=== PATIENT | male | born 1960 | race Caucasian/White ===

== ENCOUNTER 2022-01-26 13:58 | Inpatient (IN) | payer OTHER ==
[~2022-01-26] VITALS: Ht 170.2 cm; Wt 105.0 kg
[2022-01-26 15:40] LABS: BASOPHILS # (AUTO) 0.1 X10'3 (0-0.2); BASOPHILS % (AUTO) 0.8 % (0-1); EOSINOPHILS # (AUTO) 0.2 X10'3 (0-0.9); EOSINOPHILS % (AUTO) 2.3 % (0-6); HEMOGLOBIN 10.6 g/dl (14.0-17.9); LYMPHOCYTES # (AUTO) 1.4 X10'3 (1.1-4.8); LYMPHOCYTES % (AUTO) 20.2 % (21-51); MEAN CORPUSCULAR HEMOGLOBIN 22.8 PG (27.0-31.0); MEAN CORPUSCULAR VOLUME 73.4 FL (78-98); MEAN PLATELET VOLUME 6.8 FL (7.4-10.4); MONOCYTES # (AUTO) 0.5 X10'3 (0-0.9); MONOCYTES % (AUTO) 7.1 % (2-12); NEUTROPHILS # (AUTO) 4.8 X10'3 (1.8-7.7); NEUTROPHILS % (AUTO) 69.6 % (42-75); PLATELET COUNT 280 X10'3 (140-440); RED BLOOD COUNT 4.64 X10'6 (4.70-6.10); RED CELL DISTRIBUTION WIDTH 18.6 % (11.5-14.5)
[2022-01-26 15:56] LABS: ALANINE AMINOTRANSFERASE 16 U/L (12-78); ALBUMIN 3.5 G/DL (3.4-5.0); ALBUMIN/GLOBULIN RATIO 0.9 (1.1-1.5); ALKALINE PHOSPHATASE 125 IU/L (46-116); ANION GAP 5 (8-16); ASPARTATE AMINO TRANSFERASE 17 U/L (10-37); BILIRUBIN,TOTAL 0.7 MG/DL (0.1-1.0); BLOOD UREA NITROGEN 20 MG/DL (7-18); BUN/CREATININE RATIO 16.8 (5.4-32.0); CHLORIDE 106 MMOL/L (99-107); CREATININE 1.19 MG/DL (0.60-1.10); GLUCOSE 99 MG/DL (70-104); POTASSIUM 4.7 MMOL/L (3.5-5.1); SODIUM 140 MMOL/L (135-145); TOTAL CARBON DIOXIDE 29.1 MMOL/L (24-32); TOTAL PROTEIN 7.4 G/DL (6.4-8.2); eGFR 62 ML/MIN
[2022-01-26 16:13] LABS: ANISOCYTOSIS 2+; MICROCYTOSIS 1+; PLATELET ESTIMATE NORMAL
[2022-01-26 16:14] LABS: HYPOCHROMASIA 1+
[2022-01-26 16:15] LABS: ELLIPTOCYTES FEW
[2022-01-26] MEDS ORDERED: aspirin 81mg tab.chew PO ONE (17:00)
[2022-01-26] MEDS ORDERED: heparin 10,000 units/1 ML INJ IV PRN (17:10)
[2022-01-26] MEDS ORDERED: HEPARIN SOD,PORK IN 0.45% NACL 250 ML IV SCH (17:10)
[2022-01-26] MEDS ORDERED: heparin 10,000 units/1 ML INJ IV ONE ×2 (17:10→17:25)
[2022-01-26] MEDS ORDERED: morphine 2 MG/ML inj. syringe IV PRN ×2 (17:25)
[2022-01-26] MEDS ORDERED: heparin 25,000 UNIT/250ml bag 250 ML IV SCH (17:25)
[2022-01-26] MEDS ORDERED: magnesium 2GM in 50ml NS 50 ML IV PRN (17:25)
[2022-01-26] MEDS ORDERED: HYDROcodone/acetaminophen 10/325mg tab PO PRN (17:25)
[2022-01-26] MEDS ORDERED: POTASSIUM BICARB 20meq eff tab 20 MEQ TABLET.EFF PO PRN ×2 (17:25)
[2022-01-26] MEDS ORDERED: magnesium Cl slow-release 64mg tablet PO PRN (17:25)
[2022-01-26] MEDS ORDERED: acetaminophen 325mg tablet PO PRN ×2 (17:25)
[2022-01-26] MEDS ORDERED: HYDROcodone/acetaminophen 5mg/325mg tablet PO PRN (17:25)
[2022-01-26] MEDS ORDERED: potassium CL 10mEq/100ml bag 100 ML IV PRN (17:25)
[2022-01-26] MEDS ORDERED: magnesium 4gm in 100ml NS 100 ML IV PRN (17:25)
[2022-01-26 17:46] LABS: ETHANOL < 0.010 GM/DL (0.0-0.010)
[2022-01-26 18:11] LABS: APTT 29 SECONDS (22-32)
[2022-01-26 18:59] LABS: CHOL/HDL RATIO 3.1 (0.00-4.99); CHOLESTEROL 110 MG/DL (0-200); HDL CHOLESTEROL 36 MG/DL (35-60); LDL CHOLESTEROL 68 MG/DL (50-100); TRIGLYCERIDES 41 MG/DL (20-135)
[2022-01-26 19:28] LABS: URINE AMPHETAMINE SCREEN NEGATIVE (Neg); URINE BARBITUATE SCREEN NEGATIVE (Neg); URINE BENZODIAZEPINES SCREEN NEGATIVE (Neg); URINE CANNABINOID SCREEN NEGATIVE (Neg); URINE COCAINE SCREEN NEGATIVE (Neg); URINE METHADONE SCREEN NEGATIVE (Neg); URINE OPIATE SCREEN POSITIVE (Neg); URINE PHENCYCLIDINE SCREEN NEGATIVE (Neg)
[2022-01-26] MEDS ORDERED: NO HOME MEDS (19:38)
[2022-01-26] MEDS: K and/or MAG REPLACEMENT MC SCH (20:00)
[2022-01-26] MEDS: carVEDilol 3.125mg tablet PO SCH (20:37)
[2022-01-26] MEDS: furosemide 20 MG/2 ML vial IV SCH (20:38)
[2022-01-26] MEDS: normal saline 1000ml 1,000 ML IV SCH (20:38)
--- NOTE | 2022-01-26 20:44 | NUR ---
MD AWARE OF ELEVATED TROPONINS
[2022-01-27 04:32] VITALS: BP 141/80
[2022-01-27 06:00] VITALS: BP 130/71
[2022-01-27 06:28] LABS: BASOPHILS % (AUTO) 0.6 % (0-1); EOSINOPHILS # (AUTO) 0.2 X10'3 (0-0.9); EOSINOPHILS % (AUTO) 3.7 % (0-6); HEMOGLOBIN 10.8 g/dl (14.0-17.9); LYMPHOCYTES # (AUTO) 1.4 X10'3 (1.1-4.8); LYMPHOCYTES % (AUTO) 21.8 % (21-51); MEAN CORPUSCULAR HEMOGLOBIN 23.2 PG (27.0-31.0); MEAN CORPUSCULAR HGB CONC 31.9 g/dL (33.0-36.5); MEAN CORPUSCULAR VOLUME 72.9 FL (78-98); MEAN PLATELET VOLUME 6.7 FL (7.4-10.4); MONOCYTES # (AUTO) 0.5 X10'3 (0-0.9); MONOCYTES % (AUTO) 7.6 % (2-12); NEUTROPHILS # (AUTO) 4.3 X10'3 (1.8-7.7); NEUTROPHILS % (AUTO) 66.3 % (42-75); PLATELET COUNT 286 X10'3 (140-440); RED BLOOD COUNT 4.66 X10'6 (4.70-6.10); RED CELL DISTRIBUTION WIDTH 18.5 % (11.5-14.5); WHITE BLOOD COUNT 6.5 X10'3 (4.5-11.0)
[2022-01-27 06:47] LABS: ALANINE AMINOTRANSFERASE 14 U/L (12-78); ALBUMIN 3.3 G/DL (3.4-5.0); ALBUMIN/GLOBULIN RATIO 0.8 (1.1-1.5); ALKALINE PHOSPHATASE 124 IU/L (46-116); ANION GAP 7 (8-16); ASPARTATE AMINO TRANSFERASE 15 U/L (10-37); BLOOD UREA NITROGEN 18 MG/DL (7-18); BUN/CREATININE RATIO 15.9 (5.4-32.0); CALCIUM 8.7 MG/DL (8.5-10.1); CHLORIDE 104 MMOL/L (99-107); CREATININE 1.13 MG/DL (0.60-1.10); GLUCOSE 83 MG/DL (70-104); POTASSIUM 3.9 MMOL/L (3.5-5.1); SODIUM 140 MMOL/L (135-145); TOTAL CARBON DIOXIDE 28.8 MMOL/L (24-32); TOTAL PROTEIN 7.2 G/DL (6.4-8.2); eGFR 66 ML/MIN
[2022-01-27] MEDS: furosemide 20 MG/2 ML vial IV SCH ×2 (07:34→19:39)
[2022-01-27] MEDS: atorvastatin 20mg tablet PO SCH (07:34)
[2022-01-27] MEDS: carVEDilol 3.125mg tablet PO SCH ×2 (07:34→20:51)
[2022-01-27] MEDS: K and/or MAG REPLACEMENT MC SCH ×2 (07:48→19:32)
[2022-01-27] MEDS ORDERED: pneumococcal 23-VAL P-sac vacc 25 mcg/0.5ml vial IMVAC ONE (10:00)
--- NOTE | 2022-01-27 10:08 | NUR ---
7 b VT, pt asymptomatic, TRANSFORMATION ARCHITECT Charmaine on unit, made aware
[2022-01-27] MEDS ORDERED: nicotine 14mg patch - 24hr TD SCH (10:45)
[2022-01-27 11:00] VITALS: BP 143/83
[2022-01-27] MEDS: nicotine 14mg patch - 24hr TD SCH (12:25)
[2022-01-27 15:00] VITALS: BP 112/66
[2022-01-27 18:00] VITALS: BP 126/74
--- NOTE | 2022-01-27 18:08 | NUR ---
Problems reprioritized. Patient report given, questions answered & plan of care reviewed with ELIZABETH Ridley. Pt worked with PT this afternoon, cleared by PT, independent in room. Pt weaned to RA, satting >95%. Provided update to girlfriend Gilma and neighbor Arnold. Heparin gtt discontinued per cardiology, new medications well tolerated. Made MD Gutierrez aware of warts under panus, no concerns & no new orders.
[2022-01-27] MEDS: ondansetron/PF 4mg/2ml inj IV PRN (19:39)
[2022-01-27] MEDS: sacubitril/valsartan 24mg-26mg tablet PO SCH (20:51)
[2022-01-27] MEDS: heparin, porcine 5000 units/ml vial SQ SCH (20:58)
--- NOTE | 2022-01-27 23:57 | NUR ---
Charting by Yvette ANGUIANO reviewed by Tanya Rodriguez RN
[2022-01-28] VITALS (7 sets, daily range): BP systolic 86–133; BP diastolic 51–69
--- NOTE | 2022-01-28 06:23 | NUR ---
Problems reprioritized. Patient report given, questions answered & plan of care reviewed with JESUS JOHNSON. Addendum: 01/28/22 at 0624 by Keyana Chen RN Amended: Links added.
[2022-01-28 06:38] LABS: BASOPHILS # (AUTO) 0.1 X10'3 (0-0.2); BASOPHILS % (AUTO) 1.1 % (0-1); EOSINOPHILS # (AUTO) 0.1 X10'3 (0-0.9); EOSINOPHILS % (AUTO) 1.8 % (0-6); HEMATOCRIT 37.4 % (42.0-52.0); HEMOGLOBIN 11.6 g/dl (14.0-17.9); LYMPHOCYTES # (AUTO) 0.9 X10'3 (1.1-4.8); LYMPHOCYTES % (AUTO) 13.6 % (21-51); MEAN CORPUSCULAR HEMOGLOBIN 22.7 PG (27.0-31.0); MEAN CORPUSCULAR HGB CONC 31.1 g/dL (33.0-36.5); MEAN CORPUSCULAR VOLUME 72.8 FL (78-98); MEAN PLATELET VOLUME 6.8 FL (7.4-10.4); MONOCYTES # (AUTO) 0.7 X10'3 (0-0.9); MONOCYTES % (AUTO) 9.7 % (2-12); NEUTROPHILS % (AUTO) 73.8 % (42-75); PLATELET COUNT 302 X10'3 (140-440); RED BLOOD COUNT 5.13 X10'6 (4.70-6.10); WHITE BLOOD COUNT 6.8 X10'3 (4.5-11.0)
[2022-01-28 06:54] LABS: ALANINE AMINOTRANSFERASE 12 U/L (12-78); ALBUMIN 3.2 G/DL (3.4-5.0); ALBUMIN/GLOBULIN RATIO 0.8 (1.1-1.5); ALKALINE PHOSPHATASE 127 IU/L (46-116); ANION GAP 3 (8-16); ASPARTATE AMINO TRANSFERASE 14 U/L (10-37); BILIRUBIN,TOTAL 1.1 MG/DL (0.1-1.0); BLOOD UREA NITROGEN 20 MG/DL (7-18); BUN/CREATININE RATIO 15.9 (5.4-32.0); CALCIUM 8.8 MG/DL (8.5-10.1); CHLORIDE 103 MMOL/L (99-107); CREATININE 1.26 MG/DL (0.60-1.10); GLUCOSE 96 MG/DL (70-104); POTASSIUM 4.3 MMOL/L (3.5-5.1); SODIUM 140 MMOL/L (135-145); TOTAL CARBON DIOXIDE 33.6 MMOL/L (24-32); TOTAL PROTEIN 7.1 G/DL (6.4-8.2); eGFR 58 ML/MIN
[2022-01-28] MEDS: K and/or MAG REPLACEMENT MC SCH ×2 (08:00→20:00)
[2022-01-28] MEDS: heparin, porcine 5000 units/ml vial SQ SCH ×2 (08:30→22:01)
[2022-01-28] MEDS: furosemide 20 MG/2 ML vial IV SCH ×2 (08:30→20:00)
[2022-01-28] MEDS: nicotine 14mg patch - 24hr TD SCH (08:30)
[2022-01-28] MEDS: carVEDilol 3.125mg tablet PO SCH ×2 (08:31→20:00)
[2022-01-28] MEDS: aspirin 81mg tab.chew PO SCH (08:31)
[2022-01-28] MEDS: atorvastatin 20mg tablet PO SCH (08:31)
[2022-01-28] MEDS: sacubitril/valsartan 24mg-26mg tablet PO SCH ×2 (08:31→20:00)
[2022-01-28] MEDS: spironolactone 25 MG tablet PO SCH (08:32)
[2022-01-28] MEDS: normal saline 1000ml 1,000 ML IV SCH (17:25)
--- NOTE | 2022-01-28 18:30 | NUR ---
Problems reprioritized. Patient report given, questions answered & plan of care reviewed with ELIZABETH Ridley.
[2022-01-28] MEDS: ondansetron/PF 4mg/2ml inj IV PRN (21:55)
[2022-01-29] VITALS: BP 98/53
[2022-01-29 02:00] VITALS: BP 102/68
[2022-01-29 06:00] VITALS: BP 113/68
--- NOTE | 2022-01-29 06:15 | NUR ---
Problems reprioritized. Patient report given, questions answered & plan of care reviewed with Maria L JOHNSON. Addendum: 01/29/22 at 0616 by Keyana Chen RN Amended: Links added.
[2022-01-29 07:15] LABS: BASOPHILS # (AUTO) 0.1 X10'3 (0-0.2); BASOPHILS % (AUTO) 0.9 % (0-1); EOSINOPHILS # (AUTO) 0.1 X10'3 (0-0.9); EOSINOPHILS % (AUTO) 1.1 % (0-6); HEMOGLOBIN 12.1 g/dl (14.0-17.9); LYMPHOCYTES # (AUTO) 1.6 X10'3 (1.1-4.8); LYMPHOCYTES % (AUTO) 20.8 % (21-51); MEAN CORPUSCULAR HEMOGLOBIN 22.8 PG (27.0-31.0); MEAN CORPUSCULAR VOLUME 73.5 FL (78-98); MEAN PLATELET VOLUME 7.1 FL (7.4-10.4); MONOCYTES # (AUTO) 0.6 X10'3 (0-0.9); MONOCYTES % (AUTO) 7.7 % (2-12); NEUTROPHILS # (AUTO) 5.2 X10'3 (1.8-7.7); NEUTROPHILS % (AUTO) 69.5 % (42-75); PLATELET COUNT 308 X10'3 (140-440); RED BLOOD COUNT 5.31 X10'6 (4.70-6.10); RED CELL DISTRIBUTION WIDTH 18.3 % (11.5-14.5); WHITE BLOOD COUNT 7.5 X10'3 (4.5-11.0)
[2022-01-29 07:25] LABS: ALANINE AMINOTRANSFERASE 13 U/L (12-78); ALBUMIN 3.2 G/DL (3.4-5.0); ALBUMIN/GLOBULIN RATIO 0.8 (1.1-1.5); ALKALINE PHOSPHATASE 120 IU/L (46-116); ANION GAP 5 (8-16); ASPARTATE AMINO TRANSFERASE 17 U/L (10-37); BILIRUBIN,TOTAL 0.9 MG/DL (0.1-1.0); BLOOD UREA NITROGEN 20 MG/DL (7-18); BUN/CREATININE RATIO 16.4 (5.4-32.0); CALCIUM 8.8 MG/DL (8.5-10.1); CHLORIDE 101 MMOL/L (99-107); CREATININE 1.22 MG/DL (0.60-1.10); GLUCOSE 95 MG/DL (70-104); POTASSIUM 4.1 MMOL/L (3.5-5.1); SODIUM 138 MMOL/L (135-145); TOTAL CARBON DIOXIDE 31.9 MMOL/L (24-32); TOTAL PROTEIN 7.1 G/DL (6.4-8.2); eGFR 60 ML/MIN
[2022-01-29] MEDS: K and/or MAG REPLACEMENT MC SCH (08:00)
[2022-01-29] MEDS: furosemide 20 MG/2 ML vial IV SCH (08:08)
[2022-01-29] MEDS: heparin, porcine 5000 units/ml vial SQ SCH (08:08)
[2022-01-29] MEDS: nicotine 14mg patch - 24hr TD SCH (08:08)
[2022-01-29] MEDS: atorvastatin 20mg tablet PO SCH (08:09)
[2022-01-29] MEDS: sacubitril/valsartan 24mg-26mg tablet PO SCH (08:09)
[2022-01-29] MEDS: spironolactone 25 MG tablet PO SCH (08:09)
[2022-01-29] MEDS: aspirin 81mg tab.chew PO SCH (08:09)
[2022-01-29] MEDS: carVEDilol 3.125mg tablet PO SCH (08:09)
[2022-01-29 11:00] VITALS: BP 110/61
--- NOTE | 2022-01-29 14:44 | NUR ---
PAGER ID: [phone] MESSAGE: PCU [id number] Dwight Ryan; getting fitted for lifevest right now. Can we dc after they are done? thanks [phone]
--- NOTE | 2022-01-29 15:59 | NUR ---
PAGER ID: [phone] MESSAGE: PCU [id number] Dwight Ryan; lifevest fitted. can pt dc? thanks [phone]
[2022-01-29 16:00] VITALS: BP 97/57
[2022-01-29] MEDS ORDERED: COR3.125T PO (16:04)
[2022-01-29] MEDS ORDERED: ATOR20TA66 PO (16:04)
[2022-01-29] MEDS ORDERED: ASPI81TA53 PO (16:04)
[2022-01-29] MEDS ORDERED: SPIR25TA PO (16:04)
[2022-01-29] MEDS ORDERED: NICO-631 TD (16:04)
[2022-01-29] MEDS ORDERED: FURO20TA4 PO (16:04)
[2022-01-29] MEDS ORDERED: SACU1TAB PO (16:04)
--- NOTE | 2022-01-29 18:45 | NUR ---
Life vest fitted and placed on pt by [facility] staff. Pt got dicahrge orders per MD Gutierrez. Reviwed discharge packet with pt, answered all questions, verbalized understanding. PIV and telemonitor removed. Pt currently waiting for ride to arrive. Provided report to ELIZABETH Javed. Pt to call when ride is here to be wheeled down.
== END 2022-01-29 19:30 | disposition home or self-care (01) | DRG 280 ==
LOC: ER 14:01 → ED HOLD 17:29 → PCU 3S 01-27 02:32
PROVIDERS: ADMIT Internal Medicine; ATTEND Internal Medicine
PROC: 3E0234Z Introduction of Serum, Toxoid and Vaccine into Muscle, Percutaneous Approach (ICD-10-PCS; principal; 2022-01-27)
DX: I21.4 Non-ST elevation (NSTEMI) myocardial infarction (principal); I50.23 Acute on chronic systolic (congestive) heart failure; I13.0 Hypertensive heart and chronic kidney disease with heart failure and stage 1 through stage 4 chronic kidney disease, or unspecified chronic kidney disease; I42.0 Dilated cardiomyopathy; E11.22 Type 2 diabetes mellitus with diabetic chronic kidney disease; E78.5 Hyperlipidemia, unspecified; F17.210 Nicotine dependence, cigarettes, uncomplicated; I25.10 Atherosclerotic heart disease of native coronary artery without angina pectoris; N18.30 Chronic kidney disease, stage 3 unspecified; Z79.82 Long term (current) use of aspirin; Z79.899 Other long term (current) drug therapy; Z95.1 Presence of aortocoronary bypass graft; Z95.5 Presence of coronary angioplasty implant and graft; Z98.84 Bariatric surgery status; Z23 Encounter for immunization; I25.2 Old myocardial infarction; Z71.6 Tobacco abuse counseling
CPT/HCPCS: 36415; 71045; 80053; 80061; 80305; 80320; 83036; 83880; 84484; 85008; 85025; 85610; 85730; 87081; 93005; 93306; 96374; 97161; 97530; 99285; G0378; J1644; J1940; J2405; J7030

== ENCOUNTER 2022-11-26 19:12 | Emergency (ER) | payer BC ==
[~2022-11-26] VITALS: Ht 170.2 cm; Wt 80.2 kg
[~2022-11-26 19:12] MED LIST: ASPI81TA53 PO; ATOR20TA66 PO; EMPA10TA PO; FURO20TA4 PO; METO-384 PO; NICO-631 TD; SACU1TAB7 PO; SPIR25TA PO
[2022-11-26 19:23] VITALS: TEMP 97.3
[2022-11-26 20:07] LABS: BASOPHILS # (AUTO) 0.1 X10'3 (0-0.2); BASOPHILS % (AUTO) 1.4 % (0-1); EOSINOPHILS # (AUTO) 0.2 X10'3 (0-0.9); EOSINOPHILS % (AUTO) 1.9 % (0-6); HEMOGLOBIN 13.2 g/dl (14.0-17.9); LYMPHOCYTES # (AUTO) 1.5 X10'3 (1.1-4.8); LYMPHOCYTES % (AUTO) 18.1 % (21-51); MEAN CORPUSCULAR HEMOGLOBIN 26.3 PG (27.0-31.0); MEAN CORPUSCULAR HGB CONC 32.3 g/dL (33.0-36.5); MEAN CORPUSCULAR VOLUME 81.5 FL (78-98); MONOCYTES # (AUTO) 0.6 X10'3 (0-0.9); MONOCYTES % (AUTO) 7.2 % (2-12); NEUTROPHILS # (AUTO) 5.9 X10'3 (1.8-7.7); NEUTROPHILS % (AUTO) 71.4 % (42-75); PLATELET COUNT 375 X10'3 (140-440); RED BLOOD COUNT 5.03 X10'6 (4.70-6.10); RED CELL DISTRIBUTION WIDTH 18.3 % (11.5-14.5); WHITE BLOOD COUNT 8.2 X10'3 (4.5-11.0)
[2022-11-26 20:19] LABS: ALANINE AMINOTRANSFERASE 14 U/L (12-78); ALBUMIN 3.5 G/DL (3.4-5.0); ALBUMIN/GLOBULIN RATIO 0.9 (1.1-1.5); ALKALINE PHOSPHATASE 137 IU/L (46-116); ANION GAP 9 (8-16); ASPARTATE AMINO TRANSFERASE 19 U/L (10-37); BILIRUBIN,TOTAL 0.5 MG/DL (0.1-1.0); BLOOD UREA NITROGEN 27 MG/DL (7-18); CALCIUM 9.6 MG/DL (8.5-10.1); CHLORIDE 100 MMOL/L (99-107); CREATININE 1.42 MG/DL (0.60-1.10); GLUCOSE 116 MG/DL (70-104); LIPASE 96 U/L (73-393); POTASSIUM 4.6 MMOL/L (3.5-5.1); SODIUM 136 MMOL/L (135-145); TOTAL PROTEIN 7.6 G/DL (6.4-8.2); eGFR 50 ML/MIN
[2022-11-26 20:37] LABS: CLARITY,URINE CLEAR (Clear); COLOR,URINE YELLOW (Yellow); GLUCOSE, URINE >=1000 mg/dl (Neg); KETONES,URINE NEGATIVE (Neg); LEUKOCYTE ESTERASE ,URINE NEGATIVE (Neg); NITRITES, URINE NEGATIVE (Neg); OCCULT BLOOD,URINE NEGATIVE (Neg); PH,URINE 5.5 (4.8-8.0); PROTEIN,URINE NEGATIVE (Neg)
[2022-11-26 20:50] LABS: UA COLLECTION TYPE CLN CATCH MIDSTREAM
[2022-11-26 21:00] LABS: AMORPHOUS URATES 1+; BACTERIA,URINE NONE SEEN /HPF (Neg); MUCUS STRANDS FEW /LPF (Neg); RBC,URINE 0-2 /HPF (0-2); SQUAMOUS EPITHELIAL CELL,UR FEW /LPF (FEW); WBC,URINE 0-4 /HPF (0-4)
[2022-11-26 21:01] LABS: FINE GRANULAR CAST 0-3 /LPF (NEGATIVE)
[2022-11-26] MEDS ORDERED: morphine 4 MG/ML inj SYRINge IV PRN (22:30)
[2022-11-26] MEDS ORDERED: normal saline 1000ML IV soln IVB ONE (22:30)
[2022-11-26] MEDS ORDERED: ondansetron/PF 4mg/2ml inj IV ONE (22:30)
[2022-11-26 23:19] LABS: BASOPHILS # (AUTO) 0.1 X10'3 (0-0.2); EOSINOPHILS # (AUTO) 0.1 X10'3 (0-0.9); EOSINOPHILS % (AUTO) 1.7 % (0-6); HEMATOCRIT 39.5 % (42.0-52.0); HEMOGLOBIN 12.7 g/dl (14.0-17.9); LYMPHOCYTES # (AUTO) 1.7 X10'3 (1.1-4.8); LYMPHOCYTES % (AUTO) 22.4 % (21-51); MEAN CORPUSCULAR HGB CONC 32.1 g/dL (33.0-36.5); MEAN CORPUSCULAR VOLUME 81.1 FL (78-98); MEAN PLATELET VOLUME 7.1 FL (7.4-10.4); MONOCYTES # (AUTO) 0.4 X10'3 (0-0.9); MONOCYTES % (AUTO) 5.8 % (2-12); NEUTROPHILS # (AUTO) 5.2 X10'3 (1.8-7.7); NEUTROPHILS % (AUTO) 69.1 % (42-75); PLATELET COUNT 320 X10'3 (140-440); RED BLOOD COUNT 4.88 X10'6 (4.70-6.10); RED CELL DISTRIBUTION WIDTH 18.7 % (11.5-14.5); WHITE BLOOD COUNT 7.5 X10'3 (4.5-11.0)
[2022-11-27 05:11] VITALS: BP 104/55; PULSE 67; RESP 15; O2SAT 91
[2022-11-27] MEDS ORDERED: HYDR-3965 PO (05:11)
[2022-11-27] MEDS ORDERED: ONDA4TAB12 PO (05:11)
[2022-11-27] MEDS ORDERED: SULF1TAB49 PO (05:11)
== END 2022-11-27 05:44 | disposition home or self-care (01) ==
LOC: ER 19:13
DX: K29.00 Acute gastritis without bleeding (principal); R10.33 Periumbilical pain; I25.10 Atherosclerotic heart disease of native coronary artery without angina pectoris; I11.0 Hypertensive heart disease with heart failure; I50.9 Heart failure, unspecified; E11.9 Type 2 diabetes mellitus without complications; Z95.5 Presence of coronary angioplasty implant and graft; Z79.82 Long term (current) use of aspirin; Z98.84 Bariatric surgery status; Z79.899 Other long term (current) drug therapy
CPT/HCPCS: 36415; 74176; 80053; 81001; 83690; 84484; 85025; 96361; 96374; 96375; 99285; J2270; J2405; J7030

== ENCOUNTER 2023-04-06 20:14 | Emergency (ER) | payer BC ==
[~2023-04-06] VITALS: Ht 167.6 cm; Wt 78.8 kg
[~2023-04-06 20:14] MED LIST changes: +ONDA4TAB12 PO
[2023-04-06 20:17] VITALS: BP 121/61; PULSE 72; RESP 16; TEMP 97.7; O2SAT 100
[2023-04-06 20:51] LABS: BILIRUBIN,URINE NEGATIVE (Neg); CLARITY,URINE CLEAR (Clear); COLOR,URINE YELLOW (Yellow); GLUCOSE, URINE >=1000 mg/dl (Neg); KETONES,URINE NEGATIVE (Neg); LEUKOCYTE ESTERASE ,URINE NEGATIVE (Neg); NITRITES, URINE NEGATIVE (Neg); OCCULT BLOOD,URINE NEGATIVE (Neg); PROTEIN,URINE NEGATIVE (Neg)
[2023-04-06 20:58] LABS: UA COLLECTION TYPE CLN CATCH MIDSTREAM
[2023-04-06 21:05] LABS: RBC,URINE 0-2 /HPF (0-2); WBC,URINE 0-4 /HPF (0-4)
[2023-04-06 21:06] LABS: BACTERIA,URINE NONE SEEN /HPF (Neg); MUCUS STRANDS FEW /LPF (Neg); SQUAMOUS EPITHELIAL CELL,UR FEW /LPF (FEW)
[2023-04-06 22:19] LABS: HEMOGLOBIN 12.3 g/dl (14.0-17.9); MEAN PLATELET VOLUME 7.1 FL (7.4-10.4); RED CELL DISTRIBUTION WIDTH 17.9 % (11.5-14.5); WHITE BLOOD COUNT 6.6 X10'3 (4.5-11.0)
[2023-04-06 22:21] LABS: BASOPHILS # (AUTO) 0.1 X10'3 (0-0.2); EOSINOPHILS # (AUTO) 0.2 X10'3 (0-0.9); EOSINOPHILS % (AUTO) 2.9 % (0-6); LYMPHOCYTES # (AUTO) 1.5 X10'3 (1.1-4.8); LYMPHOCYTES % (AUTO) 22.4 % (21-51); MEAN CORPUSCULAR HEMOGLOBIN 25.4 PG (27.0-31.0); MEAN CORPUSCULAR HGB CONC 31.6 g/dL (33.0-36.5); MEAN CORPUSCULAR VOLUME 80.3 FL (78-98); MONOCYTES # (AUTO) 0.5 X10'3 (0-0.9); MONOCYTES % (AUTO) 7.3 % (2-12); NEUTROPHILS # (AUTO) 4.4 X10'3 (1.8-7.7); NEUTROPHILS % (AUTO) 66.4 % (42-75); PLATELET COUNT 305 X10'3 (140-440); RED BLOOD COUNT 4.85 X10'6 (4.70-6.10)
[2023-04-06] MEDS ORDERED: ondansetron 4mg rapidly disintigrating tab PO ONE (22:30)
[2023-04-06 22:31] LABS: ALANINE AMINOTRANSFERASE 14 U/L (12-78); ALBUMIN 3.7 G/DL (3.4-5.0); ALBUMIN/GLOBULIN RATIO 0.9 (1.1-1.5); ALKALINE PHOSPHATASE 127 IU/L (46-116); ANION GAP 7 (8-16); ASPARTATE AMINO TRANSFERASE 32 U/L (10-37); BILIRUBIN,TOTAL 0.5 MG/DL (0.1-1.0); BLOOD UREA NITROGEN 23 MG/DL (7-18); BUN/CREATININE RATIO 17.8 (10.0-20.0); CALCIUM 9.2 MG/DL (8.5-10.1); CHLORIDE 105 MMOL/L (99-107); CREATININE 1.29 MG/DL (0.60-1.10); GLUCOSE 97 MG/DL (70-104); LIPASE 69 U/L (16-77); POTASSIUM 3.9 MMOL/L (3.5-5.1); SODIUM 140 MMOL/L (135-145); TOTAL CARBON DIOXIDE 28.4 MMOL/L (24-32); TOTAL PROTEIN 7.8 G/DL (6.4-8.2); eCRCL 52 ML/MIN; eGFR 56 ML/MIN
[2023-04-07] MEDS ORDERED: ONDA8TAB13 PO (00:20)
[2023-04-07] MEDS ORDERED: bisacodyl 5mg tablet.DR PO ONE (00:20)
[2023-04-07] MEDS ORDERED: POLY119P2 PO (00:20)
[2023-04-07] MEDS ORDERED: BISA-78 PO (00:20)
== END 2023-04-07 00:53 | disposition home or self-care (01) ==
LOC: ER 20:16
DX: R10.9 Unspecified abdominal pain (principal); R11.2 Nausea with vomiting, unspecified; K59.00 Constipation, unspecified
CPT/HCPCS: 36415; 74176; 80053; 81001; 83690; 85025; 99284

== ENCOUNTER 2023-04-09 02:54 | Emergency (ER) | payer BC ==
[~2023-04-09] VITALS: Ht 167.6 cm; Wt 75.2 kg
[~2023-04-09 02:54] MED LIST changes: +BISA-78 PO; +ONDA8TAB13 PO; +POLY119P2 PO
[2023-04-09 03:03] VITALS: TEMP 98
[2023-04-09] MEDS ORDERED: morphine 4 MG/ML inj SYRINge IV ONE (03:10)
[2023-04-09] MEDS ORDERED: normal saline 1000ML IV soln IVB ONE (03:10)
[2023-04-09] MEDS ORDERED: ondansetron/PF 4mg/2ml inj IV ONE ×2 (03:10→07:20)
[2023-04-09 03:45] LABS: BASOPHILS # (AUTO) 0.1 X10'3 (0-0.2); BASOPHILS % (AUTO) 0.9 % (0-1); EOSINOPHILS # (AUTO) 0.1 X10'3 (0-0.9); EOSINOPHILS % (AUTO) 0.9 % (0-6); HEMATOCRIT 41.4 % (42.0-52.0); HEMOGLOBIN 13.3 g/dl (14.0-17.9); LYMPHOCYTES # (AUTO) 1.6 X10'3 (1.1-4.8); LYMPHOCYTES % (AUTO) 18.8 % (21-51); MEAN CORPUSCULAR HEMOGLOBIN 25.3 PG (27.0-31.0); MEAN CORPUSCULAR HGB CONC 32.1 g/dL (33.0-36.5); MEAN CORPUSCULAR VOLUME 78.8 FL (78-98); MEAN PLATELET VOLUME 7.3 FL (7.4-10.4); MONOCYTES # (AUTO) 0.6 X10'3 (0-0.9); NEUTROPHILS # (AUTO) 6.4 X10'3 (1.8-7.7); NEUTROPHILS % (AUTO) 72.4 % (42-75); PLATELET COUNT 323 X10'3 (140-440); RED BLOOD COUNT 5.26 X10'6 (4.70-6.10); RED CELL DISTRIBUTION WIDTH 17.2 % (11.5-14.5); WHITE BLOOD COUNT 8.8 X10'3 (4.5-11.0)
[2023-04-09 03:50] LABS: ALANINE AMINOTRANSFERASE 15 U/L (12-78); ALBUMIN 3.6 G/DL (3.4-5.0); ALBUMIN/GLOBULIN RATIO 0.9 (1.1-1.5); ALKALINE PHOSPHATASE 143 IU/L (46-116); ANION GAP 12 (8-16); ASPARTATE AMINO TRANSFERASE 22 U/L (10-37); BILIRUBIN,TOTAL 1.2 MG/DL (0.1-1.0); BLOOD UREA NITROGEN 16 MG/DL (7-18); BUN/CREATININE RATIO 12.1 (10.0-20.0); CALCIUM 9.3 MG/DL (8.5-10.1); CHLORIDE 99 MMOL/L (99-107); CREATININE 1.32 MG/DL (0.60-1.10); GLUCOSE 95 MG/DL (70-104); LIPASE 54 U/L (16-77); POTASSIUM 4.2 MMOL/L (3.5-5.1); SODIUM 136 MMOL/L (135-145); TOTAL CARBON DIOXIDE 25.4 MMOL/L (24-32); TOTAL PROTEIN 7.7 G/DL (6.4-8.2); eCRCL 51 ML/MIN; eGFR 55 ML/MIN
[2023-04-09] MEDS ORDERED: iohexol 300mg/ml 100ml inj. ONE (04:09)
[2023-04-09] MEDS ORDERED: diatr meglu/diatrizoate 30ml oral sol.-(3 dose) bottle ONE (04:19)
[2023-04-09] MEDS ORDERED: HYDROmorphone inj. 0.5 MG/0.5 ML DISP.SYRIN IV ONE (07:20)
[2023-04-09 07:31] LABS: BILIRUBIN,URINE NEGATIVE (Neg); CLARITY,URINE CLEAR (Clear); COLOR,URINE YELLOW (Yellow); GLUCOSE, URINE 500 mg/dl (Neg); KETONES,URINE TRACE mg/dl (Neg); LEUKOCYTE ESTERASE ,URINE NEGATIVE (Neg); NITRITES, URINE NEGATIVE (Neg); OCCULT BLOOD,URINE NEGATIVE (Neg); PH,URINE 5.5 (4.8-8.0); PROTEIN,URINE NEGATIVE (Neg)
[2023-04-09 07:36] LABS: UA COLLECTION TYPE CLN CATCH MIDSTREAM
[2023-04-09 08:22] VITALS: BP 130/72; PULSE 70; RESP 18; O2SAT 99
== END 2023-04-09 08:24 | disposition home or self-care (01) ==
LOC: ER 02:54
DX: R10.30 Lower abdominal pain, unspecified (principal); I11.0 Hypertensive heart disease with heart failure; E11.9 Type 2 diabetes mellitus without complications; Z98.890 Other specified postprocedural states; Z79.899 Other long term (current) drug therapy
CPT/HCPCS: 36415; 74177; 80053; 81003; 83690; 85025; 93005; 96361; 96374; 96375; 96376; 99285; J1170; J2270; J2405; J3490; J7030; Q9963; Q9967

== ENCOUNTER 2024-04-22 10:46 | Inpatient (IN) | payer MEDICARE, MEDICAID ==
[~2024-04-22] VITALS: Ht 167.6 cm; Wt 59.0 kg
[~2024-04-22 10:46] MED LIST changes: +ONDA-243 PO; +ONDA-245 PO; -ONDA4TAB12 PO; -ONDA8TAB13 PO
[2024-04-22 11:37] LABS: BASOPHILS # (AUTO) 0.1 X10'3 (0-0.2); BASOPHILS % (AUTO) 0.8 % (0-1); EOSINOPHILS % (AUTO) 0.1 % (0-6); HEMATOCRIT 38.9 % (42.0-52.0); HEMOGLOBIN 12.3 g/dl (14.0-17.9); LYMPHOCYTES # (AUTO) 0.7 X10'3 (1.1-4.8); LYMPHOCYTES % (AUTO) 10.5 % (21-51); MEAN CORPUSCULAR HEMOGLOBIN 25.5 PG (27.0-31.0); MEAN CORPUSCULAR HGB CONC 31.7 g/dL (33.0-36.5); MEAN CORPUSCULAR VOLUME 80.3 FL (78-98); MEAN PLATELET VOLUME 7.2 FL (7.4-10.4); MONOCYTES # (AUTO) 0.2 X10'3 (0-0.9); MONOCYTES % (AUTO) 3.5 % (2-12); NEUTROPHILS # (AUTO) 6.1 X10'3 (1.8-7.7); NEUTROPHILS % (AUTO) 85.1 % (42-75); PLATELET COUNT 268 X10'3 (140-440); RED BLOOD COUNT 4.84 X10'6 (4.70-6.10); RED CELL DISTRIBUTION WIDTH 19.2 % (11.5-14.5); WHITE BLOOD COUNT 7.1 X10'3 (4.5-11.0)
[2024-04-22 11:53] LABS: ALBUMIN 3.8 G/DL (3.4-5.0); ANION GAP 12 (8-16); BLOOD UREA NITROGEN 15 MG/DL (7-18); BUN/CREATININE RATIO 11.1 (10.0-20.0); CALCIUM 10.1 MG/DL (8.5-10.1); CHLORIDE 101 MMOL/L (99-107); CREATININE 1.35 MG/DL (0.60-1.10); GLUCOSE 90 MG/DL (70-104); POTASSIUM 4.2 MMOL/L (3.5-5.1); PRO BRAIN NATRIURETIC PEPTIDE 2591 PG/ML (0-125); SODIUM 138 MMOL/L (135-145); TOTAL CARBON DIOXIDE 24.8 MMOL/L (24-32); eCRCL 46 ML/MIN; eGFR 53 ML/MIN
[2024-04-22 12:01] LABS: PLATELET ESTIMATE NORMAL
[2024-04-22 12:02] LABS: ANISOCYTOSIS 2+; HYPOCHROMASIA 1+
[2024-04-22 12:03] LABS: ELLIPTOCYTES FEW; POLYCHROMASIA FEW; TEAR DROP CELLS FEW
[2024-04-22] MEDS: normal saline 1000ml 1,000 ML IV ONE (14:34)
[2024-04-22] MEDS: ondansetron/PF 4mg/2ml inj IV ONE (14:35)
[2024-04-22] MEDS: ketorolac trometh 30MG/ML vial 30 MG/ML VIAL IV ONE (14:35)
[2024-04-22 14:55] LABS: APTT 30 SECONDS (22-32); INR 1.1 INR; PROTHROMBIN TIME 11.3 SECONDS (9.0-12.0)
[2024-04-22] MEDS: CefTRIAXone/D5W-Rocephin 1gm 50 ML IV ONE (15:05)
[2024-04-22] MEDS: pantoprazole 40 MG vial IV ONE (16:25)
[2024-04-22 17:04] LABS: OCCULT BLOOD STOOL POSITIVE (Neg)
[2024-04-22] MEDS ORDERED: acetaminophen 325mg tablet PO PRN ×2 (17:05)
[2024-04-22] MEDS ORDERED: morphine 2 MG/ML inj. syringe IV PRN ×2 (17:05)
[2024-04-22] MEDS ORDERED: magnesium hydroxide 30ml (MOM) UD suspension PO PRN (17:05)
[2024-04-22] MEDS: normal saline 1000ml 1,000 ML IV SCH (17:48)
[2024-04-22] MEDS: morphine 4 MG/ML inj SYRINge IV ONE (17:48)
[2024-04-22] MEDS: docusate sod 100mg capsule PO SCH (20:00)
[2024-04-22 21:55] LABS: BILIRUBIN,URINE MODERATE (Neg); CLARITY,URINE SLIGHTLY CLOUDY (Clear); COLOR,URINE YELLOW (Yellow); GLUCOSE, URINE 250 mg/dl (Neg); KETONES,URINE 15 mg/dl (Neg); LEUKOCYTE ESTERASE ,URINE NEGATIVE (Neg); NITRITES, URINE NEGATIVE (Neg); OCCULT BLOOD,URINE NEGATIVE (Neg); PROTEIN,URINE 30 mg/dl (Neg)
[2024-04-22] MEDS: pantoprazole 40MG/NS 100ML BAG 100 ML IV SCH (21:56)
[2024-04-22 22:00] LABS: BACTERIA,URINE FEW /HPF (Neg); RBC,URINE NONE SEEN /HPF (0-2); SQUAMOUS EPITHELIAL CELL,UR MODERATE /LPF (FEW); UA COLLECTION TYPE VOIDED; WBC,URINE 0-4 /HPF (0-4)
[2024-04-22 22:01] LABS: MUCUS STRANDS FEW /LPF (Neg)
[2024-04-22] MEDS: HYDROcodone/acetaminophen 5mg/325mg tablet PO PRN (23:59)
[2024-04-23] VITALS (7 sets, daily range): BP systolic 92–117; BP diastolic 53–68; PULSE 52–85; RESP 12–20; TEMP 97.6–98.6; O2SAT 97–100
[2024-04-23] MEDS: ondansetron 4mg rapidly disintigrating tab PO ONE (00:01)
[2024-04-23] MEDS ORDERED: SPIR25TA5 PO (00:51)
[2024-04-23] MEDS ORDERED: ATOR40TA72 PO (00:51)
[2024-04-23] MEDS ORDERED: METO-395 PO (00:51)
[2024-04-23] MEDS ORDERED: PANT40TA54 PO (00:51)
[2024-04-23] MEDS ORDERED: SUCR1ORA15 PO (00:51)
[2024-04-23 06:36] LABS: BASOPHILS % (AUTO) 1.1 % (0-1); EOSINOPHILS # (AUTO) 0.2 X10'3 (0-0.9); EOSINOPHILS % (AUTO) 5.2 % (0-6); HEMATOCRIT 29.1 % (42.0-52.0); HEMOGLOBIN 9.4 g/dl (14.0-17.9); LYMPHOCYTES # (AUTO) 1.6 X10'3 (1.1-4.8); LYMPHOCYTES % (AUTO) 43.7 % (21-51); MEAN CORPUSCULAR HEMOGLOBIN 25.9 PG (27.0-31.0); MEAN CORPUSCULAR HGB CONC 32.4 g/dL (33.0-36.5); MEAN PLATELET VOLUME 6.9 FL (7.4-10.4); MONOCYTES # (AUTO) 0.3 X10'3 (0-0.9); MONOCYTES % (AUTO) 7.6 % (2-12); NEUTROPHILS # (AUTO) 1.5 X10'3 (1.8-7.7); NEUTROPHILS % (AUTO) 42.4 % (42-75); PLATELET COUNT 172 X10'3 (140-440); RED BLOOD COUNT 3.64 X10'6 (4.70-6.10); RED CELL DISTRIBUTION WIDTH 19.1 % (11.5-14.5); WHITE BLOOD COUNT 3.6 X10'3 (4.5-11.0)
[2024-04-23 07:01] LABS: ALANINE AMINOTRANSFERASE 8 U/L (12-78); ALBUMIN 2.6 G/DL (3.4-5.0); ALBUMIN/GLOBULIN RATIO 0.9 (1.1-1.5); ALKALINE PHOSPHATASE 65 IU/L (46-116); ANION GAP 7 (8-16); ASPARTATE AMINO TRANSFERASE 17 U/L (10-37); BILIRUBIN,TOTAL 0.9 MG/DL (0.1-1.0); BLOOD UREA NITROGEN 20 MG/DL (7-18); BUN/CREATININE RATIO 16.9 (10.0-20.0); CALCIUM 8.4 MG/DL (8.5-10.1); CHLORIDE 105 MMOL/L (99-107); CREATININE 1.18 MG/DL (0.60-1.10); GLUCOSE 67 MG/DL (70-104); POTASSIUM 3.8 MMOL/L (3.5-5.1); SODIUM 138 MMOL/L (135-145); TOTAL CARBON DIOXIDE 25.8 MMOL/L (24-32); TOTAL PROTEIN 5.4 G/DL (6.4-8.2); eCRCL 53 ML/MIN; eGFR 62 ML/MIN
[2024-04-23] MEDS: ondansetron/PF 4mg/2ml inj IV PRN (10:13)
[2024-04-23] MEDS: mag hydrox/Alum hydrox/simeth 30ml oral suspension PO PRN (23:22)
[2024-04-24] VITALS (8 sets, daily range): BP systolic 101–126; BP diastolic 52–72; PULSE 51–76; RESP 11–18; TEMP 97.1–98.7; O2SAT 97–100
[2024-04-24 06:41] LABS: BASOPHILS % (AUTO) 1.5 % (0-1); EOSINOPHILS # (AUTO) 0.2 X10'3 (0-0.9); EOSINOPHILS % (AUTO) 4.9 % (0-6); HEMOGLOBIN 9.4 g/dl (14.0-17.9); LYMPHOCYTES # (AUTO) 1.4 X10'3 (1.1-4.8); LYMPHOCYTES % (AUTO) 44.7 % (21-51); MEAN CORPUSCULAR HGB CONC 32.3 g/dL (33.0-36.5); MEAN CORPUSCULAR VOLUME 80.5 FL (78-98); MEAN PLATELET VOLUME 7.3 FL (7.4-10.4); MONOCYTES # (AUTO) 0.3 X10'3 (0-0.9); MONOCYTES % (AUTO) 10.5 % (2-12); NEUTROPHILS # (AUTO) 1.2 X10'3 (1.8-7.7); NEUTROPHILS % (AUTO) 38.4 % (42-75); PLATELET COUNT 161 X10'3 (140-440); RED BLOOD COUNT 3.61 X10'6 (4.70-6.10); RED CELL DISTRIBUTION WIDTH 19.2 % (11.5-14.5); WHITE BLOOD COUNT 3.2 X10'3 (4.5-11.0)
[2024-04-24 07:04] LABS: ALANINE AMINOTRANSFERASE 7 U/L (12-78); ALBUMIN 2.5 G/DL (3.4-5.0); ALBUMIN/GLOBULIN RATIO 0.8 (1.1-1.5); ALKALINE PHOSPHATASE 62 IU/L (46-116); ANION GAP 6 (8-16); ASPARTATE AMINO TRANSFERASE 18 U/L (10-37); BILIRUBIN,TOTAL 0.4 MG/DL (0.1-1.0); BLOOD UREA NITROGEN 15 MG/DL (7-18); BUN/CREATININE RATIO 11.5 (10.0-20.0); CHLORIDE 105 MMOL/L (99-107); GLUCOSE 68 MG/DL (70-104); POTASSIUM 3.7 MMOL/L (3.5-5.1); SODIUM 139 MMOL/L (135-145); TOTAL CARBON DIOXIDE 27.7 MMOL/L (24-32); TOTAL PROTEIN 5.5 G/DL (6.4-8.2); eCRCL 47 ML/MIN; eGFR 55 ML/MIN
[2024-04-24] MEDS ORDERED: pantoprazole 40mg Tablet.DR PO SCH (08:00)
[2024-04-24] MEDS: spironolactone 25 MG tablet PO SCH (08:47)
[2024-04-24] MEDS: atorvastatin 20mg tablet PO SCH (08:47)
[2024-04-24] MEDS: metoprolol succinate 25mg (24-HOUR) SR. Tablet PO SCH (08:47)
[2024-04-24] MEDS: EMPAGLIFLOZIN 10 MG TABLET PO SCH (08:47)
[2024-04-25] VITALS (8 sets, daily range): BP systolic 96–138; BP diastolic 57–79; PULSE 19–69; RESP 11–21; TEMP 97.3–98.3; O2SAT 92–100
[2024-04-25 07:15] LABS: BASOPHILS % (AUTO) 0.9 % (0-1); EOSINOPHILS # (AUTO) 0.2 X10'3 (0-0.9); EOSINOPHILS % (AUTO) 4.6 % (0-6); HEMATOCRIT 28.1 % (42.0-52.0); HEMOGLOBIN 8.9 g/dl (14.0-17.9); LYMPHOCYTES # (AUTO) 1.5 X10'3 (1.1-4.8); LYMPHOCYTES % (AUTO) 41.5 % (21-51); MEAN CORPUSCULAR HEMOGLOBIN 25.6 PG (27.0-31.0); MEAN CORPUSCULAR HGB CONC 31.6 g/dL (33.0-36.5); MEAN CORPUSCULAR VOLUME 81.1 FL (78-98); MEAN PLATELET VOLUME 7.1 FL (7.4-10.4); MONOCYTES # (AUTO) 0.3 X10'3 (0-0.9); MONOCYTES % (AUTO) 7.6 % (2-12); NEUTROPHILS # (AUTO) 1.6 X10'3 (1.8-7.7); NEUTROPHILS % (AUTO) 45.4 % (42-75); PLATELET COUNT 162 X10'3 (140-440); RED BLOOD COUNT 3.47 X10'6 (4.70-6.10); RED CELL DISTRIBUTION WIDTH 19.4 % (11.5-14.5); WHITE BLOOD COUNT 3.5 X10'3 (4.5-11.0)
[2024-04-25 08:08] LABS: ALBUMIN 2.4 G/DL (3.4-5.0); ALBUMIN/GLOBULIN RATIO 0.9 (1.1-1.5); ALKALINE PHOSPHATASE 55 IU/L (46-116); ANION GAP 4 (8-16); ASPARTATE AMINO TRANSFERASE 21 U/L (10-37); BILIRUBIN,TOTAL 0.4 MG/DL (0.1-1.0); BLOOD UREA NITROGEN 11 MG/DL (7-18); BUN/CREATININE RATIO 8.3 (10.0-20.0); CHLORIDE 108 MMOL/L (99-107); CREATININE 1.32 MG/DL (0.60-1.10); GLUCOSE 76 MG/DL (70-104); POTASSIUM 4.1 MMOL/L (3.5-5.1); SODIUM 139 MMOL/L (135-145); TOTAL CARBON DIOXIDE 26.9 MMOL/L (24-32); TOTAL PROTEIN 5.2 G/DL (6.4-8.2); eCRCL 47 ML/MIN; eGFR 54 ML/MIN
[2024-04-25 08:17] LABS: ALANINE AMINOTRANSFERASE < 6 U/L (12-78)
[2024-04-25] MEDS ORDERED: iohexol 300mg/ml 100ml inj. ONE (14:44)
[2024-04-25] MEDS: nicotine 21mg patch - 24 hr TD SCH (20:33)
[2024-04-26 02:00] VITALS: BP 125/64; PULSE 50; RESP 15; TEMP 98.6; O2SAT 99
[2024-04-26 07:00] VITALS: BP 115/60; PULSE 58; RESP 12; TEMP 98.3; O2SAT 100
[2024-04-26 07:39] LABS: BASOPHILS % (AUTO) 1.5 % (0-1); EOSINOPHILS # (AUTO) 0.2 X10'3 (0-0.9); EOSINOPHILS % (AUTO) 5.1 % (0-6); HEMATOCRIT 28.2 % (42.0-52.0); HEMOGLOBIN 9.1 g/dl (14.0-17.9); LYMPHOCYTES # (AUTO) 1.2 X10'3 (1.1-4.8); LYMPHOCYTES % (AUTO) 40.3 % (21-51); MEAN CORPUSCULAR HEMOGLOBIN 26.3 PG (27.0-31.0); MEAN CORPUSCULAR HGB CONC 32.4 g/dL (33.0-36.5); MEAN PLATELET VOLUME 7.5 FL (7.4-10.4); MONOCYTES # (AUTO) 0.2 X10'3 (0-0.9); MONOCYTES % (AUTO) 8.1 % (2-12); NEUTROPHILS # (AUTO) 1.4 X10'3 (1.8-7.7); PLATELET COUNT 175 X10'3 (140-440); RED BLOOD COUNT 3.48 X10'6 (4.70-6.10)
[2024-04-26 07:56] LABS: ALANINE AMINOTRANSFERASE 6 U/L (12-78); ALBUMIN 2.4 G/DL (3.4-5.0); ALBUMIN/GLOBULIN RATIO 0.8 (1.1-1.5); ALKALINE PHOSPHATASE 58 IU/L (46-116); ANION GAP 4 (8-16); ASPARTATE AMINO TRANSFERASE 20 U/L (10-37); BILIRUBIN,TOTAL 0.4 MG/DL (0.1-1.0); BLOOD UREA NITROGEN 10 MG/DL (7-18); BUN/CREATININE RATIO 7.4 (10.0-20.0); CALCIUM 7.7 MG/DL (8.5-10.1); CHLORIDE 107 MMOL/L (99-107); CREATININE 1.36 MG/DL (0.60-1.10); GLUCOSE 78 MG/DL (70-104); POTASSIUM 4.6 MMOL/L (3.5-5.1); SODIUM 139 MMOL/L (135-145); TOTAL CARBON DIOXIDE 28.5 MMOL/L (24-32); TOTAL PROTEIN 5.3 G/DL (6.4-8.2); eCRCL 45 ML/MIN; eGFR 53 ML/MIN
[2024-04-26 08:00] VITALS: BP_SYST 104; BP_SYST 113; BP_SYST 125; BP_DIAS 60; BP_DIAS 65; PULSE 52; PULSE 55; PULSE 71; RESP 12; O2SAT 100
[2024-04-26 08:48] LABS: ANISOCYTOSIS 2+; HYPOCHROMASIA 1+; PLATELET ESTIMATE NORMAL; TOTAL CELLS COUNTED 100
[2024-04-26 11:00] VITALS: BP 113/60; PULSE 52; RESP 13; TEMP 98.5; O2SAT 97
== END 2024-04-26 13:22 | disposition home or self-care (01) | DRG 432 ==
LOC: ER 10:46 → ED HOLD 17:10 → PCU 3S 04-23 07:07
PROVIDERS: ADMIT Internal Medicine; ATTEND Internal Medicine
PROC: BW211ZZ Computerized Tomography (CT Scan) of Abdomen and Pelvis using Low Osmolar Contrast (ICD-10-PCS; principal; 2024-04-22)
PROC: BW241ZZ Computerized Tomography (CT Scan) of Chest and Abdomen using Low Osmolar Contrast (ICD-10-PCS; 2024-04-25)
DX: K74.60 Unspecified cirrhosis of liver (principal); I50.23 Acute on chronic systolic (congestive) heart failure; K92.1 Melena; N17.9 Acute kidney failure, unspecified; I11.0 Hypertensive heart disease with heart failure; R19.09 Other intra-abdominal and pelvic swelling, mass and lump; I25.10 Atherosclerotic heart disease of native coronary artery without angina pectoris; F17.210 Nicotine dependence, cigarettes, uncomplicated; E11.9 Type 2 diabetes mellitus without complications; Z79.899 Other long term (current) drug therapy; Z98.84 Bariatric surgery status; Z95.1 Presence of aortocoronary bypass graft; I25.2 Old myocardial infarction; Z87.11 Personal history of peptic ulcer disease; R60.1 Generalized edema
CPT/HCPCS: 36415; 71046; 71260; 74176; 80048; 80053; 81001; 82272; 83036; 83605; 83880; 85007; 85008; 85025; 85610; 85730; 86885; 86900; 86901; 87040; 87081; 93005; 93306; 97161; 99285; G0378; J0696; J1885; J2270; J2405; J2470; J7030; Q9967

== ENCOUNTER 2024-07-04 19:54 | Inpatient (IN) | payer BC, MEDICAID ==
[~2024-07-04] VITALS: Ht 172.7 cm; Wt 64.0 kg
[~2024-07-04 19:54] MED LIST changes: -ASPI81TA53 PO; -ATOR20TA66 PO; +ATOR40TA72 PO; -BISA-78 PO; -FURO20TA4 PO; -METO-384 PO; +METO-395 PO; -NICO-631 TD; -ONDA-243 PO; -ONDA-245 PO; +PANT40TA54 PO; -POLY119P2 PO; -SACU1TAB7 PO; -SPIR25TA PO; +SPIR25TA5 PO; +SUCR1ORA15 PO
[2024-07-04] MEDS ORDERED: iohexol 300mg/ml 100ml inj. ONE (20:11)
[2024-07-04 20:35] LABS: EOSINOPHILS # (AUTO) 0.3 X10'3 (0-0.9); HEMOGLOBIN 9.8 g/dl (14.0-17.9); MONOCYTES # (AUTO) 0.4 X10'3 (0-0.9); MONOCYTES % (AUTO) 10.3 % (2-12)
[2024-07-04 20:37] LABS: BASOPHILS # (AUTO) 0.1 X10'3 (0-0.2); BASOPHILS % (AUTO) 1.6 % (0-1); EOSINOPHILS % (AUTO) 7.1 % (0-6); HEMATOCRIT 31.4 % (42.0-52.0); LYMPHOCYTES # (AUTO) 0.9 X10'3 (1.1-4.8); MEAN CORPUSCULAR HEMOGLOBIN 24.7 PG (27.0-31.0); MEAN CORPUSCULAR HGB CONC 31.4 g/dL (33.0-36.5); MEAN CORPUSCULAR VOLUME 78.6 FL (78-98); MEAN PLATELET VOLUME 7.2 FL (7.4-10.4); NEUTROPHILS # (AUTO) 2.6 X10'3 (1.8-7.7); PLATELET COUNT 271 X10'3 (140-440); RED BLOOD COUNT 3.99 X10'6 (4.70-6.10); WHITE BLOOD COUNT 4.3 X10'3 (4.5-11.0)
[2024-07-04 20:47] LABS: APTT 25 SECONDS (22-32); INR 1.1 INR; PROTHROMBIN TIME 11.3 SECONDS (9.0-12.0)
[2024-07-04 20:57] LABS: ALBUMIN 3.3 G/DL (3.4-5.0); ANION GAP 6 (8-16); BLOOD UREA NITROGEN 25 MG/DL (7-18); BUN/CREATININE RATIO 21.9 (10.0-20.0); CALCIUM 9.1 MG/DL (8.5-10.1); CHLORIDE 104 MMOL/L (99-107); CREATININE 1.14 MG/DL (0.60-1.10); GLUCOSE 62 MG/DL (70-104); PRO BRAIN NATRIURETIC PEPTIDE 1118 PG/ML (0-125); SODIUM 139 MMOL/L (135-145); TOTAL CARBON DIOXIDE 29.2 MMOL/L (24-32); eCRCL 58 ML/MIN; eGFR 64 ML/MIN
[2024-07-04 20:58] LABS: POTASSIUM 5.3 MMOL/L (3.5-5.1)
[2024-07-04] MEDS ORDERED: iohexol 350MG/ML 100ml bottle IV ONE (21:08)
[2024-07-04 21:11] LABS: ANISOCYTOSIS 2+; ELLIPTOCYTES FEW; MICROCYTOSIS 1+; PLATELET ESTIMATE NORMAL; POIKILOCYTOSIS 1+
[2024-07-04] MEDS: ipratropium/albuterol 3ml nebule NEB ONE (23:07)
[2024-07-04 23:09] VITALS: PULSE 73; RESP 16; O2SAT 96
[2024-07-04 23:39] LABS: OCCULT BLOOD STOOL NEGATIVE (Neg)
[2024-07-05] VITALS (28 sets, daily range): BP systolic 81–104; BP diastolic 43–61; PULSE 58–103; RESP 14–19; TEMP 97.3–98; O2SAT 93–100
[2024-07-05] MEDS: methylPREDNISolone sod succ 125mg/2ml vial IV ONE ×2 (00:05→11:02)
[2024-07-05 00:10] LABS: SYPHILIS SCREENING TEST POC NEGATIVE (Negative)
[2024-07-05] MEDS ORDERED: potassium Cl 40MEQ/1/2NS 520ml 520 ML IV PRN (02:55)
[2024-07-05] MEDS ORDERED: acetaminophen 325mg tablet PO PRN (02:55)
[2024-07-05] MEDS ORDERED: magnesium Cl slow-release 64mg tablet PO PRN (02:55)
[2024-07-05] MEDS ORDERED: magnesium sulf-water 4G/100mL 100 ML IV PRN (02:55)
[2024-07-05] MEDS ORDERED: mag hydrox/Alum hydrox/simeth 30ml oral suspension PO PRN (02:55)
[2024-07-05] MEDS ORDERED: magnesium hydroxide 30ml (MOM) UD suspension PO PRN (02:55)
[2024-07-05] MEDS ORDERED: potassium Cl 20 mEq SR tablet PO PRN ×2 (02:55)
[2024-07-05] MEDS ORDERED: magnesium sulf-water 2g/50mL 50 ML IV PRN (02:55)
[2024-07-05 03:29] LABS: MAGNESIUM 1.9 MG/DL (1.5-2.4); POTASSIUM 4.7 MMOL/L (3.5-5.1)
[2024-07-05] MEDS ORDERED: nitroGLYCERIN 0.4mg SUBLingual tab SL PRN (04:05)
[2024-07-05] MEDS ORDERED: metoprolol tartrate 1mg/ml inj IV PRN (04:05)
[2024-07-05] MEDS ORDERED: aminophylline 500mg/20ml vial IV PRN (04:05)
[2024-07-05] MEDS: furosemide 20 MG/2 ML vial IV SCH ×2 (07:51→20:30)
[2024-07-05] MEDS: heparin, porcine 5000 units/ml vial SQ SCH (07:52)
[2024-07-05] MEDS: metoprolol succinate 25mg (24-HOUR) SR. Tablet PO SCH (07:52)
[2024-07-05] MEDS: pantoprazole 40mg Tablet.DR PO SCH (07:53)
[2024-07-05] MEDS: atorvastatin 20mg tablet PO SCH (07:53)
[2024-07-05] MEDS: EMPAGLIFLOZIN 10 MG TABLET PO SCH (07:53)
[2024-07-05] MEDS: docusate sod 100mg capsule PO SCH (07:53)
[2024-07-05] MEDS: K and/or MAG REPLACEMENT MC SCH (07:54)
[2024-07-05] MEDS: spironolactone 25 MG tablet PO SCH (08:00)
[2024-07-05] MEDS: ondansetron/PF 4mg/2ml inj IV PRN (08:05)
[2024-07-05] MEDS ORDERED: albuterol 2.5 MG/3 ML nebule NEB PRN (08:35)
[2024-07-05] MEDS: CefTRIAXone 2gm/D5W 50ml BAG 50 ML IV ONE (11:27)
[2024-07-05] MEDS: azithromycin/NS 500mg/250ml 250 ML IV ONE (11:28)
[2024-07-05] MEDS: ipratropium/albuterol 3ml nebule NEB SCH (11:49)
[2024-07-05] MEDS: ringers solution, lacted 1,000 ML IV ONE (13:30)
[2024-07-05] MEDS: regadenoson 0.4mg/5ml syringe IV PRN (13:31)
[2024-07-05] MEDS: methylPREDNISolone sod succ 125mg/2ml vial IV SCH (20:32)
[2024-07-05] MEDS ORDERED: ondansetron/PF 4mg/2ml inj IV PRN (22:35)
[2024-07-05] MEDS: HYDROcodone/acetaminophen 5mg/325mg tablet PO PRN (22:45)
[2024-07-06] VITALS (13 sets, daily range): BP systolic 92–102; BP diastolic 49–61; PULSE 75–106; RESP 12–19; TEMP 97.2–98.5; O2SAT 92–100
[2024-07-06 06:49] LABS: BASOPHILS % (AUTO) 0 % (0-1); EOSINOPHILS % (AUTO) 0 % (0-6); HEMATOCRIT 28.8 % (42.0-52.0); HEMOGLOBIN 9.1 g/dl (14.0-17.9); LYMPHOCYTES # (AUTO) 0.3 X10'3 (1.1-4.8); LYMPHOCYTES % (AUTO) 4.3 % (21-51); MEAN CORPUSCULAR HEMOGLOBIN 24.8 PG (27.0-31.0); MEAN CORPUSCULAR HGB CONC 31.7 g/dL (33.0-36.5); MEAN CORPUSCULAR VOLUME 78.4 FL (78-98); MEAN PLATELET VOLUME 7.1 FL (7.4-10.4); MONOCYTES # (AUTO) 0.2 X10'3 (0-0.9); MONOCYTES % (AUTO) 3.4 % (2-12); NEUTROPHILS # (AUTO) 5.7 X10'3 (1.8-7.7); NEUTROPHILS % (AUTO) 92.3 % (42-75); PLATELET COUNT 248 X10'3 (140-440); RED BLOOD COUNT 3.67 X10'6 (4.70-6.10); RED CELL DISTRIBUTION WIDTH 19.5 % (11.5-14.5); WHITE BLOOD COUNT 6.2 X10'3 (4.5-11.0)
[2024-07-06 07:18] LABS: ALANINE AMINOTRANSFERASE 8 U/L (12-78); ALBUMIN 3.3 G/DL (3.4-5.0); ALBUMIN/GLOBULIN RATIO 0.8 (1.1-1.5); ALKALINE PHOSPHATASE 87 IU/L (46-116); ANION GAP 9 (8-16); ASPARTATE AMINO TRANSFERASE 13 U/L (10-37); BILIRUBIN,TOTAL 0.4 MG/DL (0.1-1.0); BLOOD UREA NITROGEN 30 MG/DL (7-18); BUN/CREATININE RATIO 19.5 (10.0-20.0); CALCIUM 8.7 MG/DL (8.5-10.1); CHLORIDE 99 MMOL/L (99-107); CREATININE 1.54 MG/DL (0.60-1.10); GLUCOSE 153 MG/DL (70-104); MAGNESIUM 1.9 MG/DL (1.5-2.4); POTASSIUM 4.2 MMOL/L (3.5-5.1); SODIUM 135 MMOL/L (135-145); TOTAL CARBON DIOXIDE 26.9 MMOL/L (24-32); TOTAL PROTEIN 7.5 G/DL (6.4-8.2); eCRCL 43 ML/MIN; eGFR 45 ML/MIN
[2024-07-06] MEDS ORDERED: LIPASE/PROTEASE/AMYLASE 16,800 UNIT CAPSULE.DR PO SCH (07:30)
[2024-07-06 08:39] LABS: PRO BRAIN NATRIURETIC PEPTIDE 1723 PG/ML (0-125)
[2024-07-06] MEDS: CefTRIAXone 2gm/D5W 50ml BAG 50 ML IV SCH (09:42)
[2024-07-06] MEDS: azithromycin/NS 500mg/250ml 250 ML IV SCH (11:22)
[2024-07-06] MEDS: normal saline 1000ml 1,000 ML IV SCH (11:22)
[2024-07-06] MEDS ORDERED: ipratropium/albuterol 3ml nebule NEB PRN (11:45)
[2024-07-06] MEDS: midodrine 5mg tablet PO ONE (20:17)
[2024-07-07 02:00] VITALS: BP 97/49; PULSE 59; RESP 14; TEMP 97.8; O2SAT 98
[2024-07-07 06:00] VITALS: BP 98/43; PULSE 64; RESP 20; TEMP 98; O2SAT 94
[2024-07-07 06:20] LABS: ALANINE AMINOTRANSFERASE 10 U/L (12-78); ALBUMIN 2.9 G/DL (3.4-5.0); ALBUMIN/GLOBULIN RATIO 0.8 (1.1-1.5); ALKALINE PHOSPHATASE 73 IU/L (46-116); ANION GAP 5 (8-16); ASPARTATE AMINO TRANSFERASE 16 U/L (10-37); BILIRUBIN,TOTAL 0.4 MG/DL (0.1-1.0); BLOOD UREA NITROGEN 33 MG/DL (7-18); BUN/CREATININE RATIO 25.4 (10.0-20.0); CALCIUM 8.4 MG/DL (8.5-10.1); CHLORIDE 106 MMOL/L (99-107); GLUCOSE 122 MG/DL (70-104); MAGNESIUM 2.1 MG/DL (1.5-2.4); POTASSIUM 4.9 MMOL/L (3.5-5.1); SODIUM 138 MMOL/L (135-145); TOTAL CARBON DIOXIDE 26.8 MMOL/L (24-32); TOTAL PROTEIN 6.5 G/DL (6.4-8.2); eCRCL 51 ML/MIN; eGFR 55 ML/MIN
[2024-07-07 06:24] LABS: BASOPHILS % (AUTO) 0 % (0-1); EOSINOPHILS % (AUTO) 0 % (0-6); HEMATOCRIT 27.9 % (42.0-52.0); HEMOGLOBIN 8.9 g/dl (14.0-17.9); LYMPHOCYTES # (AUTO) 0.4 X10'3 (1.1-4.8); LYMPHOCYTES % (AUTO) 4.5 % (21-51); MEAN CORPUSCULAR HEMOGLOBIN 24.9 PG (27.0-31.0); MEAN CORPUSCULAR VOLUME 77.7 FL (78-98); MEAN PLATELET VOLUME 7.3 FL (7.4-10.4); MONOCYTES # (AUTO) 0.2 X10'3 (0-0.9); MONOCYTES % (AUTO) 1.8 % (2-12); NEUTROPHILS # (AUTO) 8.6 X10'3 (1.8-7.7); NEUTROPHILS % (AUTO) 93.7 % (42-75); PLATELET COUNT 223 X10'3 (140-440); RED BLOOD COUNT 3.59 X10'6 (4.70-6.10); RED CELL DISTRIBUTION WIDTH 20.1 % (11.5-14.5); WHITE BLOOD COUNT 9.2 X10'3 (4.5-11.0)
[2024-07-07] MEDS ORDERED: ASPI81TA52 PO (07:16)
[2024-07-07] MEDS ORDERED: FLUT1DIS4 INH (07:16)
[2024-07-07] MEDS ORDERED: ALBU18HF2 INH (07:16)
[2024-07-07] MEDS: normal saline 500ml IV soln 500 ML IV ONE (07:45)
[2024-07-07] MEDS: methylPREDNISolone sod succ 125mg/2ml vial IV SCH (07:47)
[2024-07-07 08:00] VITALS: RESP 20; O2SAT 94
[2024-07-07] MEDS ORDERED: ONDA-243 PO (09:03)
[2024-07-07] MEDS ORDERED: NICO-630 TOP (09:04)
[2024-07-07 11:00] VITALS: BP 92/51; PULSE 71; RESP 16; TEMP 99.7; O2SAT 98
[2024-07-10 08:12] LABS: HSV 1 PCR Negative (Negative); HSV 2 PCR Negative (Negative)
== END 2024-07-07 13:48 | disposition home or self-care (01) | DRG 291 ==
LOC: ER 19:54 → PCU 3S 23:22
PROVIDERS: ADMIT Internal Medicine; ATTEND Nurse Practitioner Family
PROC: BW251ZZ Computerized Tomography (CT Scan) of Chest, Abdomen and Pelvis using Low Osmolar Contrast (ICD-10-PCS; 2024-07-04)
PROC: 4A02XM4 Measurement of Cardiac Total Activity, External Approach (ICD-10-PCS; principal; 2024-07-05)
PROC: 3E033HZ Introduction of Radioactive Substance into Peripheral Vein, Percutaneous Approach (ICD-10-PCS; 2024-07-05)
DX: I13.0 Hypertensive heart and chronic kidney disease with heart failure and stage 1 through stage 4 chronic kidney disease, or unspecified chronic kidney disease (principal); I50.33 Acute on chronic diastolic (congestive) heart failure; J96.01 Acute respiratory failure with hypoxia; J44.1 Chronic obstructive pulmonary disease with (acute) exacerbation; N17.9 Acute kidney failure, unspecified; Z20.822 Contact with and (suspected) exposure to COVID-19; D50.0 Iron deficiency anemia secondary to blood loss (chronic); R19.05 Periumbilic swelling, mass or lump; A63.0 Anogenital (venereal) warts; N18.30 Chronic kidney disease, stage 3 unspecified; K59.09 Other constipation; Z96.651 Presence of right artificial knee joint; E78.5 Hyperlipidemia, unspecified; I25.10 Atherosclerotic heart disease of native coronary artery without angina pectoris; T50.2X5A Adverse effect of carbonic-anhydrase inhibitors, benzothiadiazides and other diuretics, initial encounter; I25.2 Old myocardial infarction; Y92.89 Other specified places as the place of occurrence of the external cause; Z95.1 Presence of aortocoronary bypass graft; Z98.84 Bariatric surgery status; Z90.49 Acquired absence of other specified parts of digestive tract; Z87.891 Personal history of nicotine dependence
CPT/HCPCS: 36415; 71045; 71275; 74177; 78452; 80048; 80053; 82272; 83605; 83735; 83880; 84132; 84145; 84484; 85008; 85025; 85610; 85730; 87040; 87081; 87502; 87503; 87529; 87811; 93005; 93017; 93306; 94640; 94664; 94760; 99285; A4615; A6258; A6449; A9500; G0378; J0456; J0696; J1644; J1940; J2405; J2785; J2919; J7030; J7040; J7120; Q9967

== ENCOUNTER 2025-02-14 21:24 | Emergency (ER) | payer BC, MEDICAID ==
[~2025-02-14] VITALS: Ht 167.6 cm; Wt 63.6 kg
[~2025-02-14 21:24] MED LIST changes: +ALBU18HF2 INH; +FLUT1DIS4 INH; -METO-395 PO; +ONDA-243 PO; -SPIR25TA5 PO; -SUCR1ORA15 PO
[2025-02-14 22:23] LABS: MEAN PLATELET VOLUME 6.5 FL (7.4-10.4); RED CELL DISTRIBUTION WIDTH 20.7 % (11.5-14.5)
[2025-02-14 22:31] LABS: CREATININE 1.52 MG/DL (0.60-1.10); TOTAL CARBON DIOXIDE 26.3 MMOL/L (24-32); eCRCL 43 ML/MIN; eGFR 46 ML/MIN
--- NOTE | 2025-02-14 23:19 | Physician Documentation ---
History of Present Illness ~ Chief Complaint: Vomiting Stated Complaint: BLOOD IN VOMITT Time Seen by MD: 23:15 Primary Medical Doctor: none Mode of Arrival: POV HPI Patient presents to the emergency room for evaluation of epigastric pain along with nausea and vomiting that began last night. States he feels like he might have heartburn. No diarrhea or fevers Medication Reconciliation Allergies: Coded Allergies: No Known Allergies (Unverified , 02/14/25) Scheduled Atorvastatin Calcium (Atorvastatin Calcium), 1 TAB PO DAILY, (Reported) Empagliflozin (Jardiance), 1 TAB PO DAILY, (Reported) Fluticasone/Salmeterol (Advair 250-50 Diskus), 1 PUFFS INH Q12H Ondansetron 8mg ODT (Ondansetron Odt), 1 TAB PO Q6H Pantoprazole Sodium (Pantoprazole Sodium), 1 TAB PO DAILY, (Reported) Scheduled PRN Albuterol Sulfate (Ventolin Hfa), 2 PUFFS INH Q4HPRN PRN for wheezing Mag Hydrox/Al Hydrox/Simeth* (Maalox Advanced Suspension*), 30 ML PO PRN PRN for indigestion/dyspepsia ONDANSETRON ODT 4mg tablet (Ondansetron Odt), 1 TAB PO Q6H PRN PRN for nausea/vomiting Past Medical History Past Medical History: Coronary Artery Disease, Congestive Heart Failure, Hypertension, Myocardial Infarction, Hernia, Diabetes Past Surgical History: angioplasty, coronary bypass surgery, gastric bypass Other Past Surgical History: Hernia repair Alcohol Use: Occasionally Drug Use: none Lives In: Home Review of Systems ROS All review of systems negative except as per HPI Physical Exam Vital Signs: Temperature: 98.1, Source: Temporal, Heart Rate: 80, Respiratory Rate: 20, BP: 112/47, Pulse Oximetry: 100, Weight: 63.600 Oxygen Flow Rate: 0 Physical Exam General: Patient is awake, alert, oriented x4 in no acute distress Head: Normocephalic and atraumatic. Eyes: Conjunctival normal. EOMI. PERRL. ENT: Mucous membranes moist. Neck: Supple, trachea is midline. Chest: Clear to auscultation bilaterally without rales, rhonchi, or wheezes. There is no accessory muscle use or retractions. Cardiac: RRR without murmurs, gallops, or rubs. Abd: Soft, nondistended, epigastric tenderness to palpation without peritonitis Progress Progress Note Positive response to GI cocktail Results/Orders Results/Orders Orders - TRISTON EDWARD MD Urinalysis, Cult If Indicated (02/14/25 21:56) Completed Orders - TRISTON EDWARD MD Cbc/Diff (02/14/25 21:56) BMP (02/14/25 21:56) Lipase (02/14/25 21:56) CMP (02/14/25 21:56) Normal Saline 1000ml (0.9% Sodium Chlori (02/14/25 23:20) Ondansetron Inj. (Zofran 4mg/2ml Vial) (02/14/25 23:20) Famotidine/Pf Iv Inj (Pepcid Iv Inj) (02/14/25 23:20) Pantoprazole 40mg Iv (Protonix 40mg Iv) (02/14/25 23:20) Mag & Alum Hydrox/Simeth Susp (Maalox Or (02/14/25 23:20) Lidocaine 2% Viscous (Xylocaine 2% Visco (02/14/25 23:20) Metoclopramide Inj (Reglan Inj) (02/15/25 01:00) Medications Received in ER Medications (Trade) Dose Ordered Sig/Richar Route PRN Reason Start Time Stop Time Status Last Admin Dose Admin Sodium Chloride 1,000 ml @ 1,000 mls/hr ONCE ONCE IV 02/14/25 23:20 02/15/25 00:19 DC 02/15/25 00:09 1,000 MLS/HR (Zofran 4mg/2ml vial) 8 mg ONCE ONCE IV 02/14/25 23:20 02/14/25 23:23 DC 02/15/25 00:14 8 MG (Pepcid IV inj) 20 mg ONCE ONCE IV 02/14/25 23:20 02/14/25 23:23 DC 02/15/25 00:19 20 MG (Protonix 40mg IV) 80 mg ONCE ONCE IV 02/14/25 23:20 02/14/25 23:23 DC 02/15/25 00:19 80 MG (Maalox oral suspension) 30 ml ONCE ONCE PO 02/14/25 23:20 02/14/25 23:23 DC 02/15/25 00:12 30 ML (Xylocaine 2% Viscous 15mL cup) 15 ml ONCE ONCE MM 02/14/25 23:20 02/14/25 23:23 DC 02/15/25 00:12 15 ML (Reglan inj) 5 mg ONCE ONCE IV 02/15/25 01:00 02/15/25 01:01 DC 02/15/25 01:36 5 MG Vital Signs 02/14/25 02/14/25 02/14/25 02/15/25 21:29 23:01 23:01 00:21 Temp 97.8 98.1 Pulse 106 80 82 Resp 20 20 18 B/P (MAP) 110/61 112/47 (68) 117/55 (75) Pulse Ox 99 100 98 O2 Flow Rate 0 02/15/25 01:44 Temp 98.1 Pulse 84 Resp 16 B/P (MAP) 104/57 Pulse Ox 97 Laboratory Tests Test 02/14/25 22:09 White Blood Count 10.6 Red Blood Count 4.78 Hemoglobin 10.8 L Hematocrit 34.6 L Mean Corpuscular Volume 72.4 L Mean Corpuscular Hemoglobin 22.5 L Mean Corpuscular Hemoglobin Concent 31.1 L Red Cell Distribution Width 20.7 H Platelet Count 339 Mean Platelet Volume 6.5 L Neutrophils (%) (Auto) 88.3 H Lymphocytes (%) (Auto) 8.2 L Monocytes (%) (Auto) 2.7 Eosinophils (%) (Auto) 0.2 Basophils (%) (Auto) 0.6 Neutrophils # (Auto) 9.3 H Lymphocytes # (Auto) 0.9 L Monocytes # (Auto) 0.3 Eosinophils # (Auto) 0.0 Basophils # (Auto) 0.1 CBC Comment Sodium Level 141 Potassium Level 4.6 Chloride Level 106 Carbon Dioxide Level 26.3 Anion Gap 9 Blood Urea Nitrogen 32 H Creatinine 1.52 H Estimated GFR/1.73 m2 46 BUN/Creatinine Ratio 21.1 H Glucose Level 130 H Calcium Level 9.1 Total Bilirubin 1.1 H Aspartate Amino Transf (AST/SGOT) 23 Alanine Aminotransferase (ALT/SGPT) 20 Alkaline Phosphatase 99 Total Protein 7.9 Albumin 3.8 Globulin 4.1 Albumin/Globulin Ratio 0.9 L Lipase 29 Chemistry Comments Medical Decision Making Additional information obtaine: old records Findings Patient presents to the emergency room with blood tinged vomitus after a day of vomiting. Differentials include but are not limited to Yisel-Evans tears, esophageal rupture, peptic ulcer disease, reflux, dehydration, anemia therefore emergent labs ordered. Mild anemia noted but improved from previous. Mild elevation of BUN near his baseline and he had not feel the elevated BUN represents acute GI bleed. No report of melena. Patient has responded to GI cocktail. 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 He is responding to therapy in his now sleeping comfortably. ER precautions discussed Diff Dx GI Bleed:Consideration: Include: Bleeding diathesis Diff Dx Pain:Considerations: Include: Appendicitis Diff Dx N/V/D:Considerations: Include: DKA Diff Dx Rectal:Considerations: Include: Fistula Departure Disposition: HOME / SELF CARE / HOMELESS Impression: Primary Impression: Viral gastritis Additional Impression: Yisel-Evans tear Condition: Improved Discharge Instructions: Yisel-Evans Syndrome, Viral Gastroenteritis, Adult Referrals: NO PRIMARY CARE PROVIDER (PCP) Prescriptions Mag Hydrox/Al Hydrox/Simeth* (Maalox Advanced Suspension*) 200 Mg-200 Mg-20 Mg/5 Ml Oral.susp 30 ML PO PRN PRN for indigestion/dyspepsia, #355 ML Prov: TRISTON EDWARD MD 02/15/25 Ondansetron 8mg ODT (Ondansetron Odt) 8 Mg Tab.rapdis 1 TAB PO Q6H for nausea/vomiting for 3 Days, #12 TAB 0 Refills Prov: TRISTON EDWARD MD 02/15/25 Signature Scribe Signature: No scribe Attestation: The note accurately reflects work and decisions made by me.Triston Edward MD 02/15/25 01:00 TRISTON EDWARD MD Feb 14, 2025 23:19
[2025-02-15] MEDS: normal saline 1000ml 1,000 ML IV ONE (00:09)
[2025-02-15] MEDS: mag hydrox/Alum hydrox/simeth 30ml oral suspension PO ONE (00:12)
[2025-02-15] MEDS: LIDOcaine 2% Viscous 15ml cup MM ONE (00:12)
[2025-02-15] MEDS: ondansetron/PF 4mg/2ml inj IV ONE (00:14)
[2025-02-15] MEDS: famotidine/PF 10 mg/ml inj IV ONE (00:19)
[2025-02-15] MEDS ORDERED: MAG355OR18 PO (01:00)
[2025-02-15] MEDS ORDERED: ONDA-245 PO (01:00)
[2025-02-15] MEDS: metoclopramide 5 mg/ml inj IV ONE (01:36)
[2025-02-15 01:44] VITALS: BP 104/57; PULSE 84; RESP 16; TEMP 98.1; O2SAT 97
== END 2025-02-15 01:45 | disposition home or self-care (01) ==
LOC: ER 21:25
DX: A08.4 Viral intestinal infection, unspecified (principal); K22.6 Gastro-esophageal laceration-hemorrhage syndrome; E11.9 Type 2 diabetes mellitus without complications; I25.10 Atherosclerotic heart disease of native coronary artery without angina pectoris; I25.2 Old myocardial infarction; I11.0 Hypertensive heart disease with heart failure; I50.9 Heart failure, unspecified; Z95.1 Presence of aortocoronary bypass graft; Z98.890 Other specified postprocedural states; Z79.899 Other long term (current) drug therapy; Z72.89 Other problems related to lifestyle
CPT/HCPCS: 80053; 83690; 85025; 96361; 96374; 96375; 99284; J2405; J2470; J2765; J3490; J7030